=== PATIENT | male | born 1955 | race Caucasian/White ===

== ENCOUNTER 2020-02-15 04:45 | Emergency (ER) | payer OTHER, SELFPAY ==
[2020-02-15 04:47] VITALS: BP 134/92; PULSE 89; RESP 16; TEMP 36.3; O2SAT 95; BMI 21.9
--- NOTE | 2020-02-15 05:10 | RAD_ITS ---
STUDY: X-RAY - UNILATERAL RIBS ( RIGHT ) WITH CHEST REASON FOR EXAM: Male, 64 years old. NKI -- C/O RT UPPER ANTERIOR RIB PAIN AFTER CLIMBING UP AND DOWN ON TOW MOTOR AT WORK TECHNIQUE - RIBS: 4 view(s) of the ribs. TECHNIQUE - CHEST: Single frontal view of the chest. COMPARISON: None. FINDINGS - RIBS: There is a tiny step-off along the cortex of the anterior 6 right rib seen on one view only. FINDINGS - CHEST: There is no demonstrated pneumothorax. There are areas of hyperinflation, mild interstitial prominence in the right mid lung periphery. Probable mild fibrotic changes in the bases. There is no demonstrated pleural abnormality. Normal size heart. Normal mediastinum and dillan. Normal visualized pulmonary arteries. Normal visualized aortic arch and descending thoracic aorta. There are diffuse degenerative changes of the visualized thoracic spine. Mild osteopenia. Healed right midclavicular fracture. There are degenerative changes of the acromioclavicular joints. There is no demonstrated abnormality of the visualized soft tissue structures of the upper abdomen. RAD/Ribs Uni Min 3V w/PA Chest IMPRESSION: RIBS: Possible nondisplaced fracture of the anterior sixth rib versus artifact as it is only visualized on one view and may not correspond to the reported discomfort level.. CHEST: Component of COPD, possible mild pulmonary fibrosis. Interstitial changes involving the right mid lung periphery may be acute or chronic. Clinical correlation, correlation preferably with previous injury or follow-up recommended. Electronically Signed: Brigid Michelle MD at 5:50 EDT , Service support ,
[2020-02-15] MEDS: Lidocaine 5% Patch 1 PATCH TOPICAL (05:15)
--- NOTE | 2020-02-15 05:16 | ED.VIS.GEN ---
History of Present Illness Chief Complaint: Other, Pain/Inj Informant: Patient Narrative: 64-year-old male presents with right-sided rib pain. 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 He noticed that it was hurting yesterday but continued to do it and now today it hurts worse. After telling his boss he did do this at work he was sent to the ER for evaluation. Patient has no shortness of breath or other associated symptoms. He has no bruising. He states it only hurts when he raises his right arm he takes a very deep inspiration. Past Medical History - Allergies and Home Meds Allergies/Adverse Reactions: Allergies codeine Allergy (Verified 02/15/20 04:47) Chest tightness Penicillins Allergy (Verified 02/15/20 04:47) Angioedema Sulfa (Sulfonamide Antibiotics) Adverse Reaction (Verified 02/15/20 04:47) Rash Primary Care Physician: Neela Preston [employer], [facility] [Primary Care Provider] - Past Medical History: - - None reported Surgical History: noncontributory Lives: Alone Smoking Status: Current every day smoker Alcohol: None Drugs: None Review of Systems General: Denies: Chills, Fever, Sweats Eyes: Denies: Visual changes - bilaterally, Diplopia ENT: Denies: Rhinorrhea, Sore throat Cardiovascular: Reports: - - Right lower rib pain. Denies: Palpitations, Heart racing Respiratory: Denies: Dyspnea, Cough, Sputum Gastrointestinal: Denies: Abdominal pain, Nausea Genitourinary: Denies: Dysuria, Hematuria Musculoskeletal: Denies: Arthralgias, Neck pain, Back pain Skin: Denies: Rash, Abscess Neurological: Denies: Headache, Weakness Physical Exam Vital Signs/Narrative: Vital Signs Temp Pulse Resp BP Pulse Ox 02/15/20 04:47 97.4 F L 89 16 134/92 H 95 Inital Vital Signs reviewed: Yes General: Well nourished, No Acute Distress Head: Normocephalic, Atraumatic Eyes: Perrl, EOMI Cardiovascular: Regular rate, Regular rhythm, No murmurs Respiratory: No distress, CTA bilaterally, - - Small tenderness right lower ribs in the anterior axillary line. Crepitance, deformity, bruising Abdomen: Soft, Nontender Back: Nontender, Normal Inspection Skin: Normal color, No rash Neurological: Alert, Oriented x3 Psychological: Normal affect, Normal Mood Diagnostic/Tx/Re-eval - Medical Decision Making 64-year-old male presenting with right rib pain which started at work. His right rib series does show a fracture. He will be given work restrictions. Patient will follow-up with the [facility]. Impression: 1. Right sixth rib fracture ED Disposition - Plan for ED Patient: Disposition: Home or Assisted Living Instructions: ED Rib Fx Referrals: Neela Preston NP, [facility] [Primary Care Provider] -
[2020-02-15 06:23] VITALS: RESP 18; O2SAT 96
== END 2020-02-15 06:23 | disposition home or self-care (01) ==
PROVIDERS: Emergency Provider Student in an Organized Health Care Education/Training Program; PCP Nurse Practitioner Family
DX: S22.31XA Fracture of one rib, right side, initial encounter for closed fracture (principal); F17.200 Nicotine dependence, unspecified, uncomplicated; X50.3XXA Overexertion from repetitive movements, initial encounter; Y93.89 Activity, other specified; Y92.89 Other specified places as the place of occurrence of the external cause; Y99.0 Civilian activity done for income or pay
CPT/HCPCS: 71101; 99282

== ENCOUNTER → 2021-01-28 11:51 | Outpatient (CLI) | payer SELFPAY ==
[2021-01-28 12:06] LABS: Hematocrit 44.4 % (40-54); Hemoglobin 14.8 g/dL (13.0-16.5); Mean Corp Hgb Conc 33.3 g/dL (32-36); Mean Corpuscular Hgb 31.5 pg (27.0-32.0); Mean Corpuscular Volume 94.5 fL (80-94); Mean Platelet Vol. 9.2 fl (6.2-12.0); Platelet Count 334 K/mm3 (150-450); RBC Distribution Width CV 13.5 % (11.6-14.6); White Blood Count 18.6 K/mm3 (4.4-11.0)
[2021-01-28 12:12] LABS: International Normalized Ratio 1.1; Prothrombin Time (Protime)PT. 13.5 SECONDS (11.7-14.9)
[2021-01-28 12:13] LABS: Partial Thromboplast Time 32.7 Seconds (24.1-36.2)
== END ==
PROVIDERS: PCP Nurse Practitioner Family; Referring Provider Internal Medicine Critical Care Medicine; Visit Provider Internal Medicine Critical Care Medicine
DX: R91.8 Other nonspecific abnormal finding of lung field (principal); R06.00 Dyspnea, unspecified
CPT/HCPCS: 36415; 85027; 85610; 85730